=== PATIENT | male | born 1975 | race Caucasian/White ===

== ENCOUNTER → 2017-01-08 | Outpatient (REF) | payer OTHER ==
[~2017-01-08] MED LIST: ALBUTEROL INH; CELE-19 PO; CIPR500T89 PO; DOCU10CA PO; LISIPOW PO; MILKSUS PO; NEUR600T PO; OMEPPOW18 PO; ROXI1TAB2 PO
[2017-01-08 12:02] LABS: BASO % 0.4 % (0.0-1.0); EOS # 0.1 K/mm3 (0.0-0.50); EOS % 2.5 % (0.0-3.0); LARGE UNSTAINED CELL # 0.1 K/mm3 (0.0-0.4); LYMPH # 1.8 K/mm3 (1.5-4.5); LYMPH % 36.6 % (24.0-44.0); MEAN CORPUSCULAR HEMOGLOBIN 30.8 pg (27.0-33.0); MEAN CORPUSCULAR HGB CONC 34.5 g/dl (32.0-36.5); MEAN CORPUSCULAR VOLUME 89.4 fl (80.0-96.0); MONO # 0.3 K/mm3 (0.0-0.8); MONO % 6.7 % (0.0-5.0); NEUTROPHILS # 2.4 K/mm3 (1.8-7.7); NEUTROPHILS % 51.8 % (36.0-66.0); PLATELET COUNT, AUTOMATED 217 k/mm3 (150-450); RED CELL DISTRIBUTION WIDTH 12.9 % (11.5-14.5); WHITE BLOOD COUNT 4.7 K/mm3 (4.0-10.0)
[2017-01-08 12:21] LABS: ALBUMIN 4.3 GM/DL (3.2-5.2); ALBUMIN/GLOBULIN RATIO 1.39 (1.00-1.93); ALKALINE PHOSPHATASE 53 U/L (45-117); ALT/SGPT 49 U/L (12-78); ANION GAP 8 MEQ/L (8-16); AST/SGOT 19 U/L (15-37); BILIRUBIN,TOTAL 0.5 MG/DL (0.2-1.0); BLOOD UREA NITROGEN 16 MG/DL (7-18); CALCIUM LEVEL 9.2 MG/DL (8.5-10.1); CARBON DIOXIDE LEVEL 28 MEQ/L (21-32); CHLORIDE LEVEL 104 MEQ/L (98-107); CHOLESTEROL LEVEL 191 MG/DL (<200); CREATININE FOR GFR 0.99 MG/DL (0.70-1.30); GLOMERULAR FILTRATION RATE > 60.0 (>60); GLUCOSE, FASTING 154 MG/DL (70-105); SODIUM LEVEL 140 MEQ/L (136-145); TOTAL PROTEIN 7.4 GM/DL (6.4-8.2); TRIGLYCERIDES LEVEL 218 MG/DL (<150)
== END ==
LOC: M LABDRAW1 11:48
PROVIDERS: ATTEND Family Medicine
DX: E11.9 Type 2 diabetes mellitus without complications (principal)

== ENCOUNTER → 2017-05-14 | Outpatient (REF) | payer OTHER ==
[~2017-05-14] MED LIST changes: -CELE-19 PO; +CELE1CAP4 PO; +CIPR-249 PO; -CIPR500T89 PO
[2017-05-14 12:14] LABS: ANION GAP 10 MEQ/L (8-16); BLOOD UREA NITROGEN 16 MG/DL (7-18); CALCIUM LEVEL 9.5 MG/DL (8.5-10.1); CARBON DIOXIDE LEVEL 26 MEQ/L (21-32); CHLORIDE LEVEL 105 MEQ/L (98-107); CREATININE FOR GFR 0.94 MG/DL (0.70-1.30); GLOMERULAR FILTRATION RATE > 60.0 (>60); GLUCOSE, FASTING 143 MG/DL (70-105); POTASSIUM SERUM 4.1 MEQ/L (3.5-5.1); SODIUM LEVEL 141 MEQ/L (136-145)
== END ==
LOC: M LABDRAW1 11:12
PROVIDERS: ATTEND Family Medicine
DX: E11.9 Type 2 diabetes mellitus without complications (principal)

== ENCOUNTER → 2017-11-29 | Outpatient (REF) | payer OTHER ==
[2017-11-29 11:58] LABS: BASO % 0.4 % (0.0-1.0); EOS # 0.2 10^3/uL (0.0-0.50); EOS % 3.1 % (0.0-3.0); HEMATOCRIT 44.3 % (42.0-52.0); HEMOGLOBIN 15.2 g/dl (14.0-18.0); IMMATURE GRANULOCYTE % 0.4 % (0-3.0); LYMPH # 2.3 10^3/uL (1.5-4.5); LYMPH % 43.5 % (24.0-44.0); MEAN CORPUSCULAR HEMOGLOBIN 30.3 pg (27.0-33.0); MEAN CORPUSCULAR HGB CONC 34.3 g/dl (32.0-36.5); MEAN CORPUSCULAR VOLUME 88.2 fl (80.0-96.0); MONO # 0.5 10^3/uL (0.0-0.8); NEUTROPHILS # 2.3 10^3/uL (1.8-7.7); NEUTROPHILS % 43.6 % (36.0-66.0); PLATELET COUNT, AUTOMATED 205 10^3/uL (150-450); RED BLOOD COUNT 5.02 10^6/uL (4.30-6.10); RED CELL DISTRIBUTION WIDTH 12.4 % (11.5-14.5); WHITE BLOOD COUNT 5.2 10^3/uL (4.0-10.0)
[2017-11-29 12:20] LABS: ALBUMIN 4.7 GM/DL (3.2-5.2); ALBUMIN/GLOBULIN RATIO 1.68 (1.00-1.93); ALKALINE PHOSPHATASE 49 U/L (45-117); ALT/SGPT 48 U/L (12-78); ANION GAP 7 MEQ/L (8-16); AST/SGOT 17 U/L (7-37); BILIRUBIN,TOTAL 0.5 MG/DL (0.2-1.0); BLOOD UREA NITROGEN 15 MG/DL (7-18); CALCIUM LEVEL 9.1 MG/DL (8.5-10.1); CARBON DIOXIDE LEVEL 29 MEQ/L (21-32); CHLORIDE LEVEL 104 MEQ/L (98-107); CHOLESTEROL LEVEL 195 MG/DL (<200); CREATININE FOR GFR 1.11 MG/DL (0.70-1.30); GLOMERULAR FILTRATION RATE > 60.0 (>60); GLUCOSE, FASTING 166 MG/DL (70-100); HDL CHOLESTEROL 31 MG/DL (>40); LDL CHOLESTEROL 105.8 MG/DL (<100); NON-HDL-C 164 MG/DL; POTASSIUM SERUM 4.1 MEQ/L (3.5-5.1); SODIUM LEVEL 140 MEQ/L (136-145); TOTAL PROTEIN 7.5 GM/DL (6.4-8.2); TRIGLYCERIDES LEVEL 291 MG/DL (<150)
[2017-11-29 12:50] LABS: MALB URINE SIEMENS 7.3 MG/L; MAU/CREAT RATIO 3.6 MCG/MG (0.0-30.0)
[2017-11-29 15:06] LABS: ESTIMATED AVERAGE GLUCOSE 157 MG/DL (60-110); HEMOGLOBIN A1c 7.1 %
== END ==
LOC: M LABDRAW1 08:01
DX: E11.9 Type 2 diabetes mellitus without complications (principal)

== ENCOUNTER → 2018-09-23 | Outpatient (REF) | payer OTHER ==
[~2018-09-23] MED LIST changes: +MILK120011 PO; -MILKSUS PO
[2018-09-23 13:27] LABS: HEMOGLOBIN A1c 8.2 %
== END ==
LOC: M LABDRAW1 11:53
PROVIDERS: ATTEND Family Medicine
DX: E11.9 Type 2 diabetes mellitus without complications (principal)

== ENCOUNTER → 2019-02-05 | Outpatient (CLI) | payer OTHER ==
--- NOTE | 2019-02-05 09:52 | REP ---
Clinical: Trauma/contusion. Technique: AP, lateral, bilateral oblique views of the right fifth digit. Findings: There is a mildly displaced angulated fracture at the metaphyseal base of the proximal phalanx. Impression: fracture at the base of the proximal phalanx. Electronically Signed by Leandro Obrien MD 02/05/2019 09:43 A
== END ==
LOC: M WUC 09:31
PROVIDERS: ATTEND Physician Assistant
DX: S62.616A Displaced fracture of proximal phalanx of right little finger, initial encounter for closed fracture (principal); X58.XXXA Exposure to other specified factors, initial encounter; Y92.9 Unspecified place or not applicable

== ENCOUNTER → 2019-03-17 | Outpatient (REF) | payer OTHER ==
[2019-03-17 12:08] LABS: ALBUMIN 4.1 GM/DL (3.2-5.2); ALT/SGPT 35 U/L (12-78); BILIRUBIN,TOTAL 0.5 MG/DL (0.2-1.0); BLOOD UREA NITROGEN 18 MG/DL (7-18); CALCIUM LEVEL 8.8 MG/DL (8.5-10.1); CARBON DIOXIDE LEVEL 29 MEQ/L (21-32); CHLORIDE LEVEL 105 MEQ/L (98-107); CREATININE FOR GFR 1.05 MG/DL (0.70-1.30); GLOMERULAR FILTRATION RATE > 60.0 (>60); GLUCOSE, FASTING 197 MG/DL (70-100); POTASSIUM SERUM 4.3 MEQ/L (3.5-5.1); SODIUM LEVEL 141 MEQ/L (136-145); TOTAL PROTEIN 7.2 GM/DL (6.4-8.2)
[2019-03-17 12:39] LABS: HEMOGLOBIN A1c 8.2 %
== END ==
LOC: M LABDRAW1 07:37
PROVIDERS: ATTEND Physician Assistant
DX: E11.9 Type 2 diabetes mellitus without complications (principal)

== ENCOUNTER → 2020-07-03 | Outpatient (CLI) | payer OTHER ==
[2020-07-03 12:45] LABS: MALB URINE SIEMENS 31.8 MG/L
[2020-07-03 12:54] LABS: ALBUMIN 4.6 GM/DL (3.2-5.2); ALT/SGPT 38 U/L (12-78); BILIRUBIN,TOTAL 0.6 MG/DL (0.2-1.0); BLOOD UREA NITROGEN 20 MG/DL (7-18); CALCIUM LEVEL 9.4 MG/DL (8.5-10.1); CARBON DIOXIDE LEVEL 28 MEQ/L (21-32); CHLORIDE LEVEL 103 MEQ/L (98-107); CHOLESTEROL LEVEL 195 MG/DL (<200); CREATININE FOR GFR 1.17 MG/DL (0.70-1.30); GLOMERULAR FILTRATION RATE > 60.0 (>60); GLUCOSE, FASTING 257 MG/DL (70-100); HDL CHOLESTEROL 37 MG/DL (>40); LDL CHOLESTEROL 116 MG/DL (<100); NON-HDL-C 158 MG/DL; POTASSIUM SERUM 4.2 MEQ/L (3.5-5.1); SODIUM LEVEL 136 MEQ/L (136-145); TOTAL PROTEIN 7.3 GM/DL (6.4-8.2); TRIGLYCERIDES LEVEL 212 MG/DL (<150)
== END | disposition home or self-care (01) ==
LOC: M WUC 08:53
PROVIDERS: ATTEND Nurse Practitioner Family
DX: E11.9 Type 2 diabetes mellitus without complications (principal)

== ENCOUNTER → 2020-09-29 | Outpatient (CLI) | payer SELFPAY | LOC: M LABSMTC 11:06 | PROVIDERS: ATTEND Pediatrics | DX: Z20.822 Contact with and (suspected) exposure to COVID-19 (principal) ==

== ENCOUNTER → 2021-07-08 | Outpatient (CLI) | payer OTHER ==
[2021-07-08 11:25] LABS: HEMOGLOBIN A1c 8.9 %
[2021-07-08 11:49] LABS: MALB URINE SIEMENS 14.4 MG/L; MAU/CREAT RATIO 9.4 MCG/MG (0.0-30.0)
== END ==
LOC: M WUC 08:38
PROVIDERS: ATTEND Nurse Practitioner Family
DX: E11.9 Type 2 diabetes mellitus without complications (principal)

== ENCOUNTER → 2021-10-14 | Outpatient (REF) | payer OTHER ==
[2021-10-14 13:45] LABS: HEMOGLOBIN A1c 7.1 %
== END ==
LOC: M LABWUC 09:38
PROVIDERS: ATTEND Nurse Practitioner Family
DX: E11.9 Type 2 diabetes mellitus without complications (principal)

== ENCOUNTER → 2021-12-03 | Outpatient (CLI) | payer OTHER | LOC: M PLAIMG 10:55 | PROVIDERS: ATTEND Physical Medicine & Rehabilitation | DX: M47.896 Other spondylosis, lumbar region (principal) ==

== ENCOUNTER → 2021-12-26 | Outpatient (CLI) | payer OTHER ==
[2021-12-26 08:41] LABS: PLATELET COUNT, AUTOMATED 216 10^3/uL (150-450)
[2021-12-26 08:58] LABS: COLLAGEN EPINEPHRINE 118 SECONDS (74-162)
[2021-12-26 09:08] LABS: BLOOD UREA NITROGEN 20 MG/DL (7-18); CREATININE FOR GFR 0.83 MG/DL (0.70-1.30); GLOMERULAR FILTRATION RATE > 60.0 (>60)
[2021-12-26 09:17] LABS: INR 0.98; PROTHROMBIN TIME 13.4 SECONDS (12.7-14.5)
[2021-12-26 09:18] LABS: PARTIAL THROMBOPLASTIN TIME 26.9 SECONDS (25.9-37.0)
== END ==
LOC: M LAB 08:11
PROVIDERS: ATTEND Physician Assistant Surgical
DX: M47.896 Other spondylosis, lumbar region (principal); M51.36 Other intervertebral disc degeneration, lumbar region

== ENCOUNTER → 2022-01-20 | Outpatient (CLI) | payer OTHER ==
[~2022-01-20] MED LIST changes: +PROHANCE 279.3MG/ML 15ML VIAL As Ordered ONE; +PROHANCE 279.3MG/ML 5ML VIAL As Ordered ONE
== END ==
LOC: M RAD 07:26
PROVIDERS: ATTEND Physician Assistant Surgical
DX: M47.896 Other spondylosis, lumbar region (principal)

== ENCOUNTER → 2022-05-01 | Outpatient (CLI) | payer OTHER ==
[~2022-05-01] MED LIST changes: -PROHANCE 279.3MG/ML 15ML VIAL As Ordered ONE; -PROHANCE 279.3MG/ML 5ML VIAL As Ordered ONE
[2022-05-01 11:47] LABS: BLOOD UREA NITROGEN 16 MG/DL (7-18); GLOMERULAR FILTRATION RATE > 60.0 (>60)
== END ==
LOC: M LAB 10:31
PROVIDERS: ATTEND Physical Medicine & Rehabilitation
DX: M51.36 Other intervertebral disc degeneration, lumbar region (principal)

== ENCOUNTER → 2022-05-01 | Outpatient (CLI) | payer OTHER ==
[2022-05-01 11:10] LABS: APPEARANCE, URINE MANUAL CLEAR (CLEAR); COLOR, URINE MANUAL YELLOW (YELLOW)
[2022-05-01 11:12] LABS: GLUCOSE, URINE (UA) MANUAL 1+(100 MG/DL) mg/dL (NEGATIVE); PROTEIN, URINE MANUAL NEGATIVE (NEGATIVE); SPECIFIC GRAVITY,URINE MANUAL 1.015 (1.002-1.035)
[2022-05-01 11:13] LABS: BILIRUBIN, URINE MANUAL NEGATIVE (NEGATIVE); BLOOD URINE MANUAL NEGATIVE (NEGATIVE); KETONE, URINE MANUAL NEGATIVE (NEGATIVE); LEUKOCYTE ESTERASE, URINE MAN TRACE (NEGATIVE); NITRITE, URINE MANUAL NEGATIVE (NEGATIVE); UROBILINOGEN, URINE MANUAL NORMAL (NORMAL)
[2022-05-01 11:19] LABS: BASO % 0.3 % (0.0-1.0); EOS # 0.1 10^3/uL (0.0-0.5); EOS % 1.1 % (0.0-3.0); HEMATOCRIT 42.1 % (42.0-52.0); HEMOGLOBIN 14.8 g/dl (13.5-17.5); LYMPH # 1.5 10^3/uL (1.5-5.0); LYMPH % 23.5 % (24.0-44.0); MEAN CORPUSCULAR HEMOGLOBIN 31.4 pg (27.0-33.0); MEAN CORPUSCULAR HGB CONC 35.2 g/dl (32.0-36.5); MEAN CORPUSCULAR VOLUME 89.2 fl (80.0-96.0); MONO # 0.4 10^3/uL (0.0-0.8); MONO % 6.1 % (2.0-8.0); NEUTROPHILS # 4.4 10^3/uL (1.5-8.5); NEUTROPHILS % 68.5 % (36.0-66.0); PLATELET COUNT, AUTOMATED 221 10^3/uL (150-450); RED BLOOD COUNT 4.72 10^6/uL (4.30-6.10); WHITE BLOOD COUNT 6.4 10^3/uL (4.0-10.0)
[2022-05-01 11:22] LABS: BACTERIA, URINE NONE SEEN; HYALINE CAST, URINE NONE SEEN /lpf (0-1); MUCUS, URINE SMALL AMOUNT (NEGATIVE); RBC, URINE NONE SEEN /hpf (0-3); SQUAMOUS EPITHELIAL CELL URINE NONE SEEN /hpf (SMALL AMT); WBC, URINE 0-1 /hpf (0-3)
[2022-05-01 11:43] LABS: HEMOGLOBIN A1c 7.4 %
[2022-05-01 11:57] LABS: ERYTHROCYTE SEDIMENTATION RATE 10 mm/hr (0-15)
[2022-05-01 11:58] LABS: ALT/SGPT 32 U/L (12-78); BILIRUBIN,TOTAL 0.4 MG/DL (0.2-1.0); BLOOD UREA NITROGEN 17 MG/DL (7-18); CALCIUM LEVEL 9.4 MG/DL (8.5-10.1); CARBON DIOXIDE LEVEL 25 MEQ/L (21-32); CHLORIDE LEVEL 107 MEQ/L (98-107); CREATININE FOR GFR 0.83 MG/DL (0.70-1.30); GLOMERULAR FILTRATION RATE > 60.0 (>60); GLUCOSE, FASTING 187 MG/DL (70-100); LDH LACTATE DEHYDROGENASE 231 U/L (87-241); POTASSIUM SERUM 4.2 MEQ/L (3.5-5.1); SODIUM LEVEL 138 MEQ/L (136-145); TOTAL PROTEIN 7.1 GM/DL (6.4-8.2)
== END ==
LOC: M LAB 10:29
PROVIDERS: ATTEND Nurse Practitioner Family
DX: E11.9 Type 2 diabetes mellitus without complications (principal); R63.4 Abnormal weight loss

== ENCOUNTER → 2022-12-11 | Outpatient (CLI) | payer OTHER ==
[2022-12-11 11:19] LABS: HEMOGLOBIN A1c 8.9 % (4.0-6.0)
== END ==
LOC: M WUC 08:32
PROVIDERS: ATTEND Nurse Practitioner Family
DX: E11.9 Type 2 diabetes mellitus without complications (principal)

== ENCOUNTER → 2022-12-17 | Outpatient (REF) | payer OTHER ==
[2022-12-17 18:43] LABS: CREATININE, URINE 100.4 MG/DL; MAU/CREAT RATIO 16.9 MCG/MG (0.0-30.0)
== END ==
LOC: M LAB REF 17:06
PROVIDERS: ATTEND Nurse Practitioner Family
DX: Z00.00 Encounter for general adult medical examination without abnormal findings (principal); E11.9 Type 2 diabetes mellitus without complications

== ENCOUNTER → 2023-05-18 | Outpatient (CLI) | payer OTHER ==
[2023-05-18 12:18] LABS: HEMOGLOBIN A1c 9.2 % (4.0-6.0)
== END ==
LOC: M WUC 08:39
PROVIDERS: ATTEND Nurse Practitioner Family
DX: E11.9 Type 2 diabetes mellitus without complications (principal)

== ENCOUNTER → 2023-08-19 | Outpatient (CLI) | payer OTHER | LOC: M PLARAD 14:02 | PROVIDERS: ATTEND Nurse Practitioner Family | DX: M51.16 Intervertebral disc disorders with radiculopathy, lumbar region (principal) ==

== ENCOUNTER → 2023-09-23 | Outpatient (CLI) | payer OTHER ==
[2023-09-23 17:52] LABS: URIC ACID 4.6 MG/DL (3.7-9.2)
[2023-09-23 17:53] LABS: MAGNESIUM LEVEL 2.1 MG/DL (1.8-2.4)
[2023-09-23 17:54] LABS: C REACTIVE PROTEIN QUANTITATIV < 0.40 MG/DL (<1.0); IRON (FE) 107 UG/DL (65-175)
[2023-09-23 17:55] LABS: BASO % 0.3 % (0.0-1.0); EOS % 0.5 % (0.0-3.0); HEMATOCRIT 47.5 % (42.0-52.0); HEMOGLOBIN 16.1 g/dl (13.5-17.5); LYMPH # 1.8 10^3/uL (1.5-5.0); LYMPH % 29.9 % (24.0-44.0); MEAN CORPUSCULAR HEMOGLOBIN 30.7 pg (27.0-33.0); MEAN CORPUSCULAR HGB CONC 33.9 g/dl (32.0-36.5); MEAN CORPUSCULAR VOLUME 90.5 fl (80.0-96.0); MONO # 0.4 10^3/uL (0.0-0.8); MONO % 6.8 % (2.0-8.0); NEUTROPHILS # 3.6 10^3/uL (1.5-8.5); NEUTROPHILS % 62.2 % (36.0-66.0); PERCENT SATURATION 27.2 % (19.7-50.0); PLATELET COUNT, AUTOMATED 226 10^3/uL (150-450); RED BLOOD COUNT 5.25 10^6/uL (4.30-6.10); RHEUMATOID FACTOR QUANT < 3.5 IU/ML (<14); TOTAL IRON BINDING CAPACITY 393 UG/DL (250-425); WHITE BLOOD COUNT 5.9 10^3/uL (4.0-10.0)
[2023-09-23 17:56] LABS: FERRITIN 193.5 NG/ML (10.5-307.3); THYROID STIMULATING HORMONE 1.267 uIU/ML (0.55-4.78)
[2023-09-23 17:57] LABS: FOLATE > 24.00 NG/ML (>5.4); FREE T4 1.18 NG/DL (0.89-1.76); TOTAL 25(OH) VITAMIN D 21.3 NG/ML (20.0-100.0); VITAMIN B12 LEVEL 796 PG/ML (211-911)
[2023-09-23 18:15] LABS: ERYTHROCYTE SEDIMENTATION RATE 12 mm/hr (0-15)
== END ==
LOC: M WUC 13:08
PROVIDERS: ATTEND Nurse Practitioner Family
DX: G62.9 Polyneuropathy, unspecified (principal)

== ENCOUNTER → 2023-10-29 | Outpatient (CLI) | payer OTHER | LOC: M PLARAD 15:09 | PROVIDERS: ATTEND Physician Assistant Medical | DX: M54.50 Low back pain, unspecified (principal); R20.2 Paresthesia of skin; G89.29 Other chronic pain; G95.9 Disease of spinal cord, unspecified ==

== ENCOUNTER → 2023-11-25 | Outpatient (CLI) | payer OTHER ==
[2023-11-25 13:19] LABS: ALBUMIN 4.6 G/DL (3.2-5.2); ALKALINE PHOSPHATASE 50 U/L (46-116); ALT/SGPT 28 U/L (7.0-40); AST/SGOT 11 U/L (<34); BILIRUBIN,TOTAL 0.4 MG/DL (0.3-1.2); BLOOD UREA NITROGEN 26 MG/DL (9-23); CALCIUM LEVEL 9.2 MG/DL (8.5-10.1); CARBON DIOXIDE LEVEL 26 MMOL/L (20-31); CHLORIDE LEVEL 108 MMOL/L (98-107); CHOLESTEROL LEVEL 167 MG/DL (<200); CHOLESTEROL RISK RATIO 4.97 (<5); CREATININE FOR GFR 0.79 MG/DL (0.70-1.30); GLOMERULAR FILTRATION RATE > 60.0 (>60); GLUCOSE, FASTING 149 MG/DL (60-100); HDL CHOLESTEROL 33.6 MG/DL (>40); LDL CHOLESTEROL 94.2 MG/DL (<100); MAU/CREAT RATIO 3.4 MCG/MG (0.0-30.0); NON-HDL-C 133.4 MG/DL; POTASSIUM SERUM 4.3 MMOL/L (3.5-5.1); SODIUM LEVEL 140 MMOL/L (136-145); TOTAL PROTEIN 6.9 G/DL (5.7-8.2); TRIGLYCERIDES LEVEL 196 MG/DL (<150)
[2023-11-25 13:22] LABS: HEMOGLOBIN A1c 6.7 % (4.0-6.0)
== END ==
LOC: M WUC 09:44
PROVIDERS: ATTEND Nurse Practitioner Family
DX: E11.9 Type 2 diabetes mellitus without complications (principal); I10 Essential (primary) hypertension

== ENCOUNTER → 2025-03-13 | Outpatient (CLI) | payer OTHER ==
[2025-03-13 12:36] LABS: PLATELET COUNT, AUTOMATED 205 10^3/uL (150-450)
[2025-03-13 12:42] LABS: INR 0.9
== END ==
LOC: M WUC 08:09
PROVIDERS: ATTEND Student in an Organized Health Care Education/Training Program
DX: Z01.818 Encounter for other preprocedural examination (principal)

== ENCOUNTER → 2025-03-13 | Outpatient (CLI) | payer OTHER ==
[2025-03-13 12:42] LABS: CALCIUM LEVEL 9.5 MG/DL (8.5-10.1); CARBON DIOXIDE LEVEL 26 MMOL/L (20-31); CHLORIDE LEVEL 105 MMOL/L (98-107); CREATININE FOR GFR 0.79 MG/DL (0.70-1.30); GLOMERULAR FILTRATION RATE > 90.0 (>60); POTASSIUM SERUM 4.1 MMOL/L (3.5-5.1); SODIUM LEVEL 141 MMOL/L (136-145)
[2025-03-13 12:52] LABS: ESTIMATED AVERAGE GLUCOSE 206.0 MG/DL (60-110)
== END ==
LOC: M WUC 08:12
PROVIDERS: ATTEND Nurse Practitioner Family
DX: E11.9 Type 2 diabetes mellitus without complications (principal)